=== PATIENT | female | born 1955 | race Caucasian/White ===

== ENCOUNTER 2023-04-26 13:58 | Emergency (ER) | payer MEDICARE ==
[~2023-04-26] VITALS: Ht 157.5 cm; Wt 64.7 kg
[2023-04-26] MEDS ORDERED: LISINOPRIL10 MG PO (14:32)
[2023-04-26] MEDS ORDERED: MONTELUKAST SOD10 MG PO (14:32)
[2023-04-26] MEDS ORDERED: ATORVASTATIN CA20 MG PO (14:32)
[2023-04-26] MEDS ORDERED: OZEMPIC0.25 MG/0. SC (14:32)
[2023-04-26] MEDS ORDERED: DIPHENHYDRAMINE HCL INJ 50 MG/ML VIAL IV STA (14:33)
[2023-04-26] MEDS ORDERED: METOCLOPRAMIDE HCL 10 MG/2ML VIAL IV ONE (14:45)
[2023-04-26] MEDS ORDERED: METOCLOPRAMIDE HCL 10 MG/2ML VIAL ONE (14:51)
[2023-04-26] MEDS ORDERED: DIPHENHYDRAMINE HCL INJ 50 MG/ML VIAL ONE (14:51)
[2023-04-26] MEDS ORDERED: SODIUM CHLORIDE 0.9% 100 ML ONE (15:23)
[2023-04-26] MEDS ORDERED: IOPAMIDOL 370 MG/ML 100 ML INFUS..BTL INJ ONE (15:23)
[2023-04-26] MEDS ORDERED: ASPIRIN 81 MG CHEW TAB PO ONE (18:30)
[2023-04-26] MEDS ORDERED: ASPIRIN 325 MG TAB ONE (18:36)
[2023-04-26 19:00] VITALS: O2SAT 98
== END 2023-04-26 21:30 | disposition other institution (70) ==
LOC: FSED 14:04
DX: R27.0 Ataxia, unspecified (principal); I63.9 Cerebral infarction, unspecified; N39.0 Urinary tract infection, site not specified; I10 Essential (primary) hypertension; E11.9 Type 2 diabetes mellitus without complications
CPT/HCPCS: 70496; 70498; 80053; 81003; 82553; 84484; 85025; 85379; 93005; 96374; 96375; 99284; J1200; J2765; J7050; Q9967